=== PATIENT | male | born 1955 | race Caucasian/White ===

== ENCOUNTER → 2019-03-25 | Outpatient (CLI) | payer BC ==
--- NOTE | 2019-03-25 16:52 | RAD ---
SHOULDER 2+V LEFT History: Shoulder pain Technique: 3 views left shoulder. Comparison: None. Findings: Normal alignment of the glenohumeral and acromioclavicular joints. No fracture. Soft tissues unremarkable. Minimal inferior humeral osteophyte. Impression: 1. No acute osseous abnormality. Electronically signed by: Robert Augustine DO (03/25/2019 4:49 PM) [facility]
== END | disposition home or self-care (01) ==
LOC: DXRAD 09:42
PROVIDERS: ATTEND Physician Assistant Medical
DX: M25.712 Osteophyte, left shoulder (principal)
CPT/HCPCS: 73030

== ENCOUNTER → 2021-02-01 | Outpatient (CLI) | payer BC ==
--- NOTE | 2021-02-01 16:40 | RAD ---
EXAM: XR LUMBAR SPINE 4+V 02/01/2021 7:57 AM CLINICAL INDICATION: Low back pain COMPARISON: None TECHNIQUE: 5 views of the lumbar spine FINDINGS: No acute fracture. Alignment is normal. Disc spaces are maintained. There are mild degener ative endplate changes and small anterior osteophytes throughout the lumbar spine. No significant fac et arthrosis. IMPRESSION: Mild degenerative disc disease throughout the lumbar spine. Electronically signed by: Marlyn Jameson MD (02/01/2021 4:38 PM) [id number]
== END ==
LOC: RAD 07:54
PROVIDERS: ATTEND Physician Assistant Medical
DX: M51.36 Other intervertebral disc degeneration, lumbar region (principal); M25.78 Osteophyte, vertebrae
CPT/HCPCS: 72110

== ENCOUNTER 2021-09-27 13:52 | Emergency (ER) | payer MEDICARE ==
[~2021-09-27] VITALS: Ht 182.9 cm; Wt 93.6 kg
[2021-09-27 15:18] LABS: BASO % 0 % (0-3); EOS % 1 % (0-3); HEMATOCRIT 38.9 % (39.0-53.0); HEMOGLOBIN 13.6 g/dL (13.0-17.5); LYMPH # 1.4 x10^3/uL (1.0-4.8); LYMPH % 22 % (24-48); MEAN CORPUSCULAR HEMOGLOBIN 33 pg (25-35); MEAN CORPUSCULAR HGB CONC 35 g/dL (31-37); MEAN CORPUSCULAR VOLUME 94 fL (79-100); MONO # 0.8 x10^3/uL (0.0-1.1); MONO % 13 % (0-9); NEUT # 4.1 x10^3uL (1.8-7.7); NEUT % 64 % (31-73); PLATELET COUNT 340 x10^3/uL (140-400); RED BLOOD COUNT 4.14 x10^6/uL (4.30-5.70); RED CELL DISTRIBUTION WIDTH 12.7 % (11.5-14.5); WHITE BLOOD COUNT 6.3 x10^3/uL (4.0-11.0)
[2021-09-27 15:23] LABS: CALCIUM 8.9 mg/dL (8.5-10.1); CREATININE 0.8 mg/dL (0.7-1.3); POTASSIUM 3.5 mmol/L (3.5-5.1)
[2021-09-27 15:29] LABS: ALBUMIN 3.8 g/dL (3.4-5.0); TOTAL BILIRUBIN 0.9 mg/dL (0.2-1.0); TOTAL PROTEIN 7.6 g/dL (6.4-8.2)
--- NOTE | 2021-09-27 16:05 | EKG ---
[address] [address] Test Date: 2021-09-27 Test Time: 15:01:07 Pat Name: AIDA NAGEL Department: Room: Gender: M Orthodontic Treatment Coordinator: YUSEF : 1955 Requested By: LILO LONDONO Order Number: [id number] Reading MD: Karson Watters MD Measurements Intervals [place] Rate: 67 P: 56 OR: 202 QRS: 43 QRSD: 98 T: 59 QT: 392 QTc: 417 Interpretive Statements SINUS RHYTHM Electronically Signed On 10-02-2021 9:09:24 CDT by Karson Watters MD
--- NOTE | 2021-09-27 16:36 | RAD ---
CT head without contrast dated 09/27/2021 4:32 PM Comparison: None CLINICAL INDICATION: Weakness. Difficulty with balance TECHNIQUE: Contiguous axial imaging of the head was performed from skull base to vertex. One or more of the following individualized dose reduction techniques were utilized for this examinat ion: 1. Automated exposure control 2. Adjustment of the mA and/or kV according to patient size 3. Use of iterative reconstruction technique. FINDINGS: Ventricles and sulci are within normal limits for age. No midline shift or mass effect. Brain parench yma is of normal attenuation. No hemorrhage or extra-axial collection. Posterior fossa and brainstem unremarkable. Visualized paranasal sinuses and mastoid air cells are clear. No apparent calvarial abnormality. IMPRESSION: No evidence of acute intracranial abnormality. Electronically signed by: Zachary Espitia MD (09/27/2021 4:33 PM) [facility]
[2021-09-27 17:10] VITALS: BP 174/88
[2021-09-27 17:17] LABS: COLOR,URINE YELLOW
[2021-09-27 17:18] LABS: CLARITY,URINE CLEAR; GLUCOSE,URINE NEG (NEG); NITRITE,URINE NEG (NEG); UROBILINOGEN,URINE 0.2 mg/dL (0.2 mg/dL)
[2021-09-27 17:19] LABS: BACTERIA,URINE 0 /HPF (0-FEW); RBC,URINE 0 /HPF (0-2); WBC,URINE 0 /HPF (0-4)
--- NOTE | 2021-09-27 17:27 | PHYS DOC ---
Past History Additional Past Medical Histor: prostate Past Surgical History: Cancer Surgery Alcohol Use: None General Adult EDM: Chief Complaint: HYPERTENSION HPI: HPI: Patient is a 66-year-old male presents with concerns of hypertension and dizziness. Patient states yesterday his blood pressure was slightly elevated at home and was feeling a little bit dizzy. Patient took his blood pressure at home this afternoon and it was 161/109. Denies chest pain, shortness of breath. Patient denies all other health problems. Review of Systems: Review of Systems: ROS At least 10 ROS systems have been reviewed and are negative except as documented in the HPI. General: Negative except as outlined in HPI above. Skin: Negative except as outlined in HPI above. HEENT: Negative except as outlined in HPI above. Neck: Negative except as outlined in HPI above. Respiratory: Negative except as outlined in HPI above.. Cardiovascular: Negative except as outlined in HPI above. Abdomen: Negative except as outlined in HPI above. : Negative except as outlined in HPI above. Back/MSK: Negative except as outlined in HPI above. Neuro: Negative except as outlined in HPI above. Psych: Negative except as outlined in HPI above. Physical Exam: PE: Constitutional: Well developed, well nourished, no acute distress, non-toxic appearance. [] HENT: Normocephalic, atraumatic, bilateral external ears normal, oropharynx moist, no oral exudates, nose normal. [] Eyes: PERRLA, EOMI, conjunctiva normal, no discharge. [] Neck: Normal range of motion, no tenderness, supple, no stridor. [] Cardiovascular:Heart rate regular rhythm, no murmur [] Lungs & Thorax: Bilateral breath sounds clear to auscultation, no wheezing Abdomen: Bowel sounds normal, soft, no tenderness, no masses, no pulsatile masses. [] Skin: Warm, dry, no erythema, no rash. [] Back: No tenderness, no CVA tenderness. [] Extremities: No tenderness, no cyanosis, no clubbing, ROM intact, no edema. [] Neurologic: Alert and oriented X 3, normal motor function, normal sensory function, no focal deficits noted. Psychologic: Affect normal, judgement normal, mood normal. [] Current Patient Data: Labs: Laboratory Tests Test 09/27/21 14:57 White Blood Count 6.3 x10^3/uL (4.0-11.0) Red Blood Count 4.14 x10^6/uL (4.30-5.70) L Hemoglobin 13.6 g/dL (13.0-17.5) Hematocrit 38.9 % (39.0-53.0) L Mean Corpuscular Volume 94 fL (79-100) Mean Corpuscular Hemoglobin 33 pg (25-35) Mean Corpuscular Hemoglobin Concent 35 g/dL (31-37) Red Cell Distribution Width 12.7 % (11.5-14.5) Platelet Count 340 x10^3/uL (140-400) Neutrophils (%) (Auto) 64 % (31-73) Lymphocytes (%) (Auto) 22 % (24-48) L Monocytes (%) (Auto) 13 % (0-9) H Eosinophils (%) (Auto) 1 % (0-3) Basophils (%) (Auto) 0 % (0-3) Neutrophils # (Auto) 4.1 x10^3uL (1.8-7.7) Lymphocytes # (Auto) 1.4 x10^3/uL (1.0-4.8) Monocytes # (Auto) 0.8 x10^3/uL (0.0-1.1) Eosinophils # (Auto) 0.0 x10^3/uL (0.0-0.7) Basophils # (Auto) 0.0 x10^3/uL (0.0-0.2) Sodium Level 124 mmol/L (136-145) L Potassium Level 3.5 mmol/L (3.5-5.1) Chloride Level 84 mmol/L (98-107) L Carbon Dioxide Level 31 mmol/L (21-32) Anion Gap 9 (6-14) Blood Urea Nitrogen 6 mg/dL (8-26) L Creatinine 0.8 mg/dL (0.7-1.3) Estimated GFR (Cockcroft-Gault) 97.0 BUN/Creatinine Ratio 8 (6-20) Glucose Level 99 mg/dL (70-99) Calcium Level 8.9 mg/dL (8.5-10.1) Total Bilirubin 0.9 mg/dL (0.2-1.0) Aspartate Amino Transferase (AST) 32 U/L (15-37) Alanine Aminotransferase (ALT) 41 U/L (16-63) Alkaline Phosphatase 67 U/L (46-116) Total Protein 7.6 g/dL (6.4-8.2) Albumin 3.8 g/dL (3.4-5.0) Albumin/Globulin Ratio 1.0 (1.0-1.7) Vital Signs: Vital Signs Date Time Temp Pulse Resp B/P (MAP) Pulse Ox O2 Delivery O2 Flow Rate FiO2 09/27/21 14:05 97.8 99 18 211/109 (143) 100 EKG: EKG: [] Radiology/Procedures: Radiology/Procedures: []CT head without contrast dated 09/27/2021 4:32 PM Comparison: None CLINICAL INDICATION: Weakness. Difficulty with balance TECHNIQUE: Contiguous axial imaging of the head was performed from skull base to vertex. One or more of the following individualized dose reduction techniques were utilized for this examination: 1. Automated exposure control 2. Adjustment of the mA and/or kV according to patient size 3. Use of iterative reconstruction technique. FINDINGS: Ventricles and sulci are within normal limits for age. No midline shift or mass effect. Brain parenchyma is of normal attenuation. No hemorrhage or extra-axial collection. Posterior fossa and brainstem unremarkable. Visualized paranasal sinuses and mastoid air cells are clear. No apparent calvarial abnormality. IMPRESSION: No evidence of acute intracranial abnormality. Electronically signed by: Zachary Espitia MD (09/27/2021 4:33 PM) [facility] Heart Score: C/O Chest Pain: No Risk Factors: Risk Factors: DM, Current or recent (<one month) smoker, HTN, HLP, family history of CAD, obesity. Risk Scores: Score 0 - 3: 2.5% MACE over next 6 weeks - Discharge Home Score 4 - 6: 20.3% MACE over next 6 weeks - Admit for Clinical Observation Score 7 - 10: 72.7% MACE over next 6 weeks - Early Invasive Strategies Course & Med Decision Making: Course & Med Decision Making Pertinent Labs and Imaging studies reviewed. (See chart for details) [] Nontoxic-appearing, 66-year-old male presents with concerns for hypertension and dizziness. Patient's blood pressure was 160s/100 at home. Patient denies chest pain, shortness of breath. Work-up in ER consisted of CBC, CMP, EKG, CT head. All labs unremarkable. EKG shows sinus rhythm. Blood pressure in the ER was mildly elevated. X-ray was unremarkable. Discussed all results with patient. Advised patient to have close follow-up with his PCP tomorrow for further evaluation. Patient may need to follow-up with neurology if symptoms or not resolving. Discussed return precautions in length. Patient verbalizes understanding of discharge instructions. Blood pressure was still within normal range upon disposition. Dragon Disclaimer: Dragon Disclaimer: This electronic medical record was generated, in whole or in part, using a voice recognition dictation system. Departure Departure: Impression: Primary Impression: Dizziness Disposition: HOME / SELF CARE / HOMELESS Condition: STABLE Referrals: HALLEY HANNAH (PCP) Patient Instructions: Dizziness, [id number] Additional Instructions: You are seen the emergency room for dizziness and concerns of elevated blood pressure. All of your labs are unremarkable. CT of your head was negative for any acute findings. Please have close follow-up with your PCP tomorrow for further management and possible referral for neurology. Please return emergency room with worsening symptoms or concerns such as chest pain, shortness of breath, altered mental status. EMERGENCY DEPARTMENT GENERAL DISCHARGE INSTRUCTIONS Thank you for coming to [facility] (ED) today and trusting us with you care. We trust that you had a positivie experience in our Emergency Department. If you wish to speak to the department management, you may call the director at [phone]. YOUR FOLLOW UP INSTRUCTIONS ARE FOLLOWS: 1. Do you have a private Doctor? If you do not have a private doctor, please ask for a resource list of physicians or clinics that may be able to assist you with follow up care. 2. The Emergency Physician has interpreted your x-rays. The X-Ray specialist will also review them. If there is a change in the findings, you will be notified in 48 hours when at all possible. 3. A lab test or culture has been done, your results will be reviewed and you will be notified if you need a change in treatment. ADDITIONAL INSTRUCTIONS AND INFORMATION: 1. Your care today has been supervised by a physician who is specially trained in emergency care. Many problems require more than one evaluation for a complete diagnosis and treatment. We recommend that you schedule your follow up appointment as recommended to ensure complete treatment of you illness or injury. If you are unable to obtain follow up care and continue to have a problem, or if your condition worsens, we recommend that you return to the ED. 2. We are not able to safely determine your condition over the phone nor are we able to give sound medical advice over the phone. For these safety reasons, if you call for medical advice we will ask you to come to the ED for further evaluation. 3. If you have any questions regarding these discharge instructions please call the ED at [phone]. SAFETY INFORMATION: In the interest of safety, wellness, and injury prevention; we encourage you to wear your sealbelt, if you smoke; quite smoking, and we encourage family to use a protective helmet for bicycling and other sporting events that present an increased risk for head injury. IF YOUR SYMPTOMS WORSEN OR NEW SYMPTOMS DEVELOP, OR YOU HAVE CONCERNS ABOUT YOUR CONDITION; OR IF YOUR CONDITION WORSENS WHILE YOU ARE WAITING FOR YOUR FOLLOW UP APPOINTMENT; EITHER CONTACT YOUR PRIMARY CARE DOCTOR, THE PHYSICIAN WHOSE NAME AND NUMBER YOU WERE GIVEN, OR RETURN TO THE ED IMMEDIATELY. LILO LONDONO APRN September 27, 2021 17:26
== END 2021-09-27 17:58 | disposition home or self-care (01) ==
LOC: ER 13:52
DX: R42 Dizziness and giddiness (principal)
CPT/HCPCS: 36415; 70450; 80053; 81001; 85025; 93005; 99285